=== PATIENT | male | born 1960 | race Caucasian/White ===

== ENCOUNTER 2020-09-25 09:24 | Emergency (ER) | payer OTHER ==
[~2020-09-25] VITALS: Ht 177.8 cm; Wt 158.8 kg
[2020-09-25] MEDS ORDERED: Prinivil10 MG (10:04)
[2020-09-25] MEDS ORDERED: Amlodipine Bes2.5 MG (10:05)
== END 2020-09-25 10:29 | disposition home or self-care (01) ==
LOC: ER 09:24
DX: I10 Essential (primary) hypertension (principal); F10.20 Alcohol dependence, uncomplicated; Z79.899 Other long term (current) drug therapy
CPT/HCPCS: 99283